=== PATIENT | male | born 1990 | race African-American/Black ===

== ENCOUNTER 2023-05-10 21:16 | Emergency (ER) | payer SELFPAY ==
[2023-05-10 21:16] VITALS: BP 168/90; PULSE 100; RESP 18; TEMP 36.5; O2SAT 100; BMI 36.3
--- NOTE | 2023-05-10 21:47 | EDS_ITS ---
HPI History of Present Illness Chief Complaint: Laceration Narrative Narrative: Patient presents with a right hand injury, allegedly there could have been a knife involved but he also punched through a TV. He has abrasions over the dorsum of the hand. This just happened prior to arrival. He is denying any other injury other than his right hand injury. Tetanus is not up-to-date PFSH PFS Allergy/AdvReac Type Severity Reaction Status Date / Time No Known Allergies Allergy Verified 05/10/23 21:20 Social History Smoking Status: Current every day smoker tobacco type: cigarettes and e- cigarettes ROS ROS ED ROS Narrative Past medical history: none Medications: Reviewed Social history: Noncontributory Review of systems: Musculoskeletal: Hand injury as in HPI Skin: Multiple hand abrasions Neurological: No weakness or paresthesias Hematologic: No easy bleeding or easy bruising EXAM Physical Exam Narrative Exam Narrative: Physical exam General: Patient does not appear in significant distress . Head: Normocephalic, Atraumatic Neck: No C-spine tenderness Cardiovascular: Normal distal pulses Back: Nontender, Normal Inspection. Extremities: Right hand shows a PIP dorsum abrasion with normal strength and extension of the right thumb otherwise multiple small abrasions over second third fourth and fifth digits I do not believe this is the pattern of a knife. Again all digits have normal strength as far as flexion and extension with good tendon function. Skin: No abrasions, no lacerations Neurological: Normal strength and sensation Const Vital Signs: 05/10/23 21:16 Temperature 97.7 F L Temperature Source Temporal Pulse Rate 100 Respiratory Rate 18 Blood Pressure 168/90 H Blood Pressure Mean 116 Pulse Ox 100 Oxygen Delivery Method Room Air MDM MDM MDM Narrative Medical decision making narrative: My plan was to clean the wound and soak under water, I do an x-ray to make sure there is no foreign bodies or fracture and and reevaluate just make sure that there is no laceration that needs to be sutured. I was informed that the patient eloped, he used obscenities and left without me being able to explain to him or get him to change his mind or sign an AMA. Discharge Plan Triage Chief Complaint: Laceration ED Provider: Dandy Diaz Dx/Rx/DC Orders Clinical Impression: Contusion of hand, Abrasion hand Primary Care Provider: Care Physician,No Primary Referrals: NOT,DEFINED [Non-Staff] - Disposition Disposition: Elopement
[2023-05-10] MEDS: Diphth,Pertuss(Acell),Tet Vac 0.5 ML Vial IM (21:50)
--- NOTE | 2023-05-10 22:06 | ED.RN ---
pt refusing hand xray I dont need no xray my hands not broke. pt pacing in hallway I'm about to just leave. Doctor updated.
--- NOTE | 2023-05-10 22:11 | ED.RN ---
pt left AMA.
== END 2023-05-10 22:55 | disposition left against medical advice (07) ==
PROVIDERS: Emergency Provider Emergency Medicine; Visit Provider Emergency Medicine
DX: S60.221A Contusion of right hand, initial encounter (principal); S60.511A Abrasion of right hand, initial encounter; F17.210 Nicotine dependence, cigarettes, uncomplicated; X58.XXXA Exposure to other specified factors, initial encounter
CPT/HCPCS: 99284

== ENCOUNTER 2023-11-07 12:11 | Emergency (ER) | payer MEDICAID, SELFPAY ==
[2023-11-07 12:12] VITALS: BP 136/84; PULSE 95; RESP 18; TEMP 35.7; O2SAT 100; BMI 36.9
--- NOTE | 2023-11-07 12:44 | EX.ED.DYSGE1 ---
HPI <CIERRA Mcdowell - Last Filed: 11/07/23 13:56> History of Present Illness Chief Complaint: Cold Sx Narrative Narrative: Patient presenting today due to cold symptoms that started 3 days ago. He reports that he has had bodyaches, sweats, chills, nonproductive cough, and a few episodes of vomiting. His partner is being seen for similar symptoms. He reports that he does at times have chest discomfort with coughing, no chest discomfort at rest. He is unsure if he has had any fevers but denies abdominal pain, diarrhea, shortness of breath. He reports a remote history of asthma but no longer uses an inhaler. PFSH <CIERRA Mcdowell Last Filed: 11/07/23 13:56> [facility] Medical History no medical history Home Medications albuterol sulfate 90 mcg/actuation aerosol inhaler (Ventolin HFA) 1 - 2 puff inhalation Q4H PRN PRN Wheezing #1 inh 11/07/23 [Rx Last Taken Unknown] ondansetron 4 mg disintegrating tablet 4 mg PO Q8H PRN PRN Nausea #7 tabs 11/07/23 [Rx Last Taken Unknown] Allergy/AdvReac Type Severity Reaction Status Date / Time No Known Allergies Allergy Verified 11/07/23 12:11 Social History Smoking Status: Current every day smoker tobacco type: cigarettes and e-cigarettes ROS <CIERRA Mcdowell Last Filed: 11/07/23 13:56> ROS ED Constitutional Constitutional ED: Reports chills, fatigue, fever(s) and sweats ENT ENT ED: Reports nasal congestion Cardiovascular Cardiovascular: Denies chest pain or palpitations Respiratory/Chest Respiratory/Chest: Reports cough and dry cough; Denies dyspnea, hemoptysis or wheezing Gastrointestinal Gastrointestinal: Denies abdominal pain or diarrhea Musculoskeletal Musculoskeletal: Reports other Details: Body aches Integumentary Denies rash EXAM <CIERRA Mcdowell Last Filed: 11/07/23 13:56> Physical Exam Const Vital Signs: 11/07/23 12:12 11/07/23 12:28 11/07/23 13:58 Temperature 96.3 F L 99 F Temperature Source Temporal Pulse Rate 95 92 Respiratory Rate 18 15 Respiratory Pattern Normal Blood Pressure 136/84 H 132/78 H Blood Pressure Mean 101 96 Pulse Ox 100 100 Oxygen Delivery Method Room Air Positive well nourished, well developed and no apparent distress General Appearance ED: well developed HEENT Reports normocephalic, head/scalp atraumatic and TM's clear Tympanic Membrane ED: Yes TM's clear bilateral Mouth ED: Yes moist mucous membranes normal Throat: posterior oropharynx normal, tonsils normal and uvula midline Eyes PERRL and EOMs intact bilaterally Neck full ROM and supple Chest Wall inspection of chest normal Resp normal respiratory effort and clear to auscultation bilaterally Cardio regular rate and regular rhythm GI soft to palpation, non-tender, non-distended and no masses Back/Spine normal ROM and normal to inspection Extremity normal to inspection and full ROM Neuro oriented x3, CN's II-XII intact bilaterally, moves all extremities, no focal motor deficits and no sensory deficits noted Sensorium / Orientation: awake and alert Psych mental status grossly normal and thought process normal Skin no rashes or lesions noted and no wounds <Dr. Jm Nieves, - Last Filed: 11/07/23 15:00> Physical Exam Const Vital Signs: 11/07/23 12:12 11/07/23 12:28 11/07/23 13:58 Temperature 96.3 F L 99 F Temperature Source Temporal Pulse Rate 95 92 Respiratory Rate 18 15 Respiratory Pattern Normal Blood Pressure 136/84 H 132/78 H Blood Pressure Mean 101 96 Pulse Ox 100 100 Oxygen Delivery Method Room Air [facility] <CIERRA Mcdowell - Last Filed: 11/07/23 13:56> [facility] Narrative Medical decision making narrative: Patient presenting with flulike symptoms. He is nontoxic-appearing and in no acute distress. Vitals are unremarkable. He is afebrile, oxygen saturation is 100% on room air. His partner is being seen as well for similar symptoms. I do suspect a viral illness. He will be tested for COVID, influenza, and RSV. Supportive care measures discussed. Patient is influenza A positive. He is outside of the window for Tamiflu. I will give him a prescription for Zofran and albuterol inhaler to use as needed. Return instructions given he will be discharged home in stable condition. <Dr. Jm Nieves DO - Last Filed: 11/07/23 15:00> [facility] Narrative Medical decision making narrative: Patient presenting with flulike symptoms. He is nontoxic-appearing and in no acute distress. Vitals are unremarkable. He is afebrile, oxygen saturation is 100% on room air. His partner is being seen as well for similar symptoms. I do suspect a viral illness. He will be tested for COVID, influenza, and RSV. Supportive care measures discussed. Patient is influenza A positive. He is outside of the window for Tamiflu. I will give him a prescription for Zofran and albuterol inhaler to use as needed. Return instructions given he will be discharged home in stable condition. This patient was seen with a PA/RESEARCH ASSISTANT MEMBER Individually assessed they patient including history and physical. I have reviewed everything on the chart that is available and agree with the documentation provided by the PA/RESEARCH ASSISTANT MEMBER including discussion about the assessment, treatment plan, discussion, and return precautions. Patient presenting with viral symptoms onset a few days ago. Vital signs are stable he is afebrile. Initially had some nausea and vomiting which is resolved. Differential as above. Patient tested positive for influenza A today. Patient will be given symptomatic treatment. He is outside the window for Tamiflu. He is given Zofran and counseled take Tylenol and ibuprofen. Impression: 1. Influenza A 2. Nausea/vomiting Lab Data Attestation: I reviewed the patient's lab results. Discharge Plan Triage Chief Complaint: Cold Sx ED Midlevel Provider: Yris Lopez ED Provider: Jm Nieves Dx/Rx/DC Orders Clinical Impression: Influenza A Instructions: ED Influenza (Adult) Prescriptions: New ondansetron 4 mg tablet,disintegrating 4 mg PO Q8H PRN PRN (Reason: Nausea) Qty: 7 0RF albuterol sulfate [Ventolin HFA] 90 mcg/actuation HFA aerosol inhaler 1 - 2 puff inhalation Q4H PRN PRN (Reason: Wheezing) Qty: 1 0RF Stand Alone Forms: ED Work / School Excuse Primary Care Provider: Care Physician,No Primary Referrals: [facility] [Outside] - 3-5 Days Care Physician,No Primary [Primary Care Provider] - Disposition Disposition: Home, Self Care Discharge Date/Time: 11/07/23 13:59
--- OUTSIDE RECORDS SUMMARY | 2023-11-07 13:13 | XMS RPT_ITS | CCD ---
Author Name Unknown Address [address] [place] [address] [facility] [address] [place] [id number] Organization [facility] Care Team Providers Care Client Delivery Manager Name Role Phone WILFRED RIZVI Attending Unavailable WILFRED RIZVI Attending Unavailable Problems Active Problems Problem Classification Problem Date Documented Date Episodic/Chronic Calculus of urinary tract (2 sources) Calculus of kidney; Translations: [Left nephrolithiasis] Onset: 01-29-2022 Episodic Genitourinary symptoms and ill-defined conditions (1 source) Hematuria, unspecified; Translations: [Urinary tract infection with hematuria, site unspecified] Onset: 11-19-2022 Episodic Other diseases of kidney and ureters (1 source) Unspecified hydronephrosis; Translations: [Hydronephrosis, unspecified hydronephrosis type] Onset: 11-19-2022 Episodic Urinary tract infections (1 source) Urinary tract infection, site not specified; Translations: [Urinary tract infection with hematuria, site unspecified] Onset: 11-19-2022 Episodic Past or Other Problems Problem Classification Problem Date Documented Da te Episodic/Chronic Other gastrointestinal disorders (1 source) Diarrhea, unspecified; Translations: [Diarrhea, unspecified type] Onset: 04-20-2022 Episodic Viral infection (1 source) Viral infection, unspecified; Translations: [Viral syndrome] Onset: 04-20-2022 Episodic Results Test Name Value Interpretation Reference Range Facil ity Encounters Encounter Date Encounter Type Care Provider Facility Start: 11-19-2022 End: 11-19-2022 Emergency department patient visit WILFRED RIZVI Facility:[facility] Start: 04-20-2022 End: 04-20-2022 Emergency department patient visit WILFRED RIZVI Facility:[facility] Start: 01-29-2022 End: 01-29-2022 Emergency department patient visit WILFRED RIZVI Facility:[facility] Summary Purpose Family History No Family History Records Found Advance Directives No Advanced Directives Records Found Additional Source Comments (unrecognized sect ion and content) No Status Records Found INFORMATION SOURCE (unrecogn ized section and content) FOR RECORDS PERTAINING TO PATIENTS WHO ARE OR HAVE BEEN ENROLLED IN A CHEMICAL DEPENDENCY/SUBSTANCEABUSE PROGRAM, SOME INFORMATION MAY BE OMITTED. This clinical summary was aggregated from multiple sources. Caution should be exercised in using it in the provision of clinical care. This summary normalizes information from multiple sources, and as a consequence, information in this document may materially change the coding, format and clinical context of patient data. In addition, data may be omitted in some cases. CLINICAL DECISIONS SHOULD BE BASED ON THE PRIMARY CLINICAL RECORDS. [facility] [employer] [facility]. provides no warranty or guarantee of the accuracy or completeness of information in this document.
[2023-11-07] MEDS: Ibuprofen 200 MG Tablet 400 MG PO (13:24)
[2023-11-07] MEDS: Ondansetron ODT 4 MG Tablet PO (13:24)
[2023-11-07 13:58] VITALS: BP 132/78; PULSE 92; RESP 15; TEMP 37.2; O2SAT 100
== END 2023-11-07 13:59 | disposition home or self-care (01) ==
PROVIDERS: Emergency Provider Student in an Organized Health Care Education/Training Program; Visit Provider Student in an Organized Health Care Education/Training Program
DX: J10.1 Influenza due to other identified influenza virus with other respiratory manifestations (principal); R11.2 Nausea with vomiting, unspecified; F17.210 Nicotine dependence, cigarettes, uncomplicated; F17.290 Nicotine dependence, other tobacco product, uncomplicated
CPT/HCPCS: 87631; 99283